=== PATIENT | male | born 1980 | race Hispanic/Latino ===

== ENCOUNTER → 2024-06-06 13:48 | Outpatient (REF) | payer BC, SELFPAY | LOC: HWEVLT 13:48 | PROVIDERS: ATTENDING PHYSICIAN Radiology Vascular & Interventional Radiology | DX: I83.891 Varicose veins of right lower extremity with other complications (principal) | CPT/HCPCS: 93971 ==

== ENCOUNTER → 2024-08-23 09:38 | Outpatient (REF) | payer BC, SELFPAY | LOC: HWEVLT 09:38 | PROVIDERS: ATTENDING PHYSICIAN Radiology Vascular & Interventional Radiology | DX: I83.891 Varicose veins of right lower extremity with other complications (principal) | CPT/HCPCS: 36478 ==

== ENCOUNTER → 2024-09-06 10:56 | Outpatient (REF) | payer BC, SELFPAY | LOC: HWEVLT 10:56 | PROVIDERS: ATTENDING PHYSICIAN Radiology Vascular & Interventional Radiology | DX: I83.891 Varicose veins of right lower extremity with other complications (principal) | CPT/HCPCS: 93971 ==